=== PATIENT | female | born 1950 | race Caucasian/White ===

== ENCOUNTER → 2016-09-20 | Outpatient (CLI) | payer OTHER ==
--- NOTE | 2016-09-20 18:31 | DI ---
History patellar fracture followup. Two-view study. Comparison: 08/24/16. Findings currently, the patient has wires and fixation pins approximating the upper and lower poles o f the patella. The alignment is satisfactory as is apposition. No healing is seen across the fracture plane at this early point in time. Overall, bone mineral density is low. Impression: Satisfactory appearance of ORIF right patellar fracture. Details mentioned above
== END ==
LOC: ORTHO 12:20
PROVIDERS: ATTEND Orthopaedic Surgery
DX: S82.031 Displaced transverse fracture of right patella (principal)
CPT/HCPCS: 73560

== ENCOUNTER → 2016-10-04 | Outpatient (CLI) | payer OTHER ==
--- NOTE | 2016-10-04 11:44 | DI ---
RIGHT KNEE, 10/04/2016 11:06 AM: Clinical History: ] Displaced transverse fracture of the right patella with routine healing and subse quent encounter. Previous Exam: 08/24/2016; 09/08/2016; and 09/20/2016. AP and lateral views are submitted. The patient is status post ORIF with placement of metallic wires and a cerclage wire. Alignment and position are anatomic. A fracture lucency is still visible. There has been no interval change since 09/20/2016. Reading: Status post ORIF of the transverse fracture of the patella with no change in alignment and position f rom the previous exam. The fracture lucency is still visible.
== END ==
LOC: ORTHO 12:03
PROVIDERS: ATTEND Orthopaedic Surgery
DX: S82.031 Displaced transverse fracture of right patella (principal)
CPT/HCPCS: 73560

== ENCOUNTER → 2016-10-18 | Outpatient (CLI) | payer OTHER ==
--- NOTE | 2016-10-18 13:38 | DI ---
XR KNEE 1 OR 2 VWS,10/18/2016 10:31 AM: Clinical History: Right patellar fracture. Previous Exam: October 04, 2016 Findings: AP and lateral views of the right knee are obtained, and demonstrate a comminuted fracture of the rig ht patella. There are percutaneous K wires fixators and wire fixation of the right patella. There is a small knee joint effusion. A few peripheral vascular calcifications are seen. Impression: Comminuted fracture of the right patella unchanged from the prior exam.
== END ==
LOC: ORTHO 12:12
PROVIDERS: ATTEND Orthopaedic Surgery
DX: S82.031 Displaced transverse fracture of right patella (principal); M25.461 Effusion, right knee
CPT/HCPCS: 73560

== ENCOUNTER → 2016-11-08 | Outpatient (CLI) | payer OTHER ==
--- NOTE | 2016-11-08 21:50 | DI ---
RIGHT KNEE, 11/08/2016 11:15 AM: Clinical History: Closed displaced transverse fracture of the right patella with routine healing. Previous Exam: 10/18/2016. AP and crosstable lateral views are submitted. The patient is status post ORIF of the transverse frac ture through the patella. The fracture lucency is still visible on both the AP and crosstable lateral projection. Alignment and position are anatomic with only minimal step off of the articular surface seen on the lateral view. Reading: There has been no significant change in the appearance of the transverse fracture through the patella . The fracture lucency is still visible. Alignment and position are anatomic.
== END ==
LOC: ORTHO 11:57
PROVIDERS: ATTEND Orthopaedic Surgery
DX: S82.031 Displaced transverse fracture of right patella (principal)
CPT/HCPCS: 73560

== ENCOUNTER → 2016-11-29 | Outpatient (CLI) | payer OTHER ==
--- NOTE | 2016-11-29 13:58 | DI ---
XR KNEE 1 OR 2 VWS,11/29/2016 11:45 AM: Clinical History: Displaced fracture of the right patella Previous Exam: November 08, 2016 Findings: AP and lateral views of the right knee are obtained, and demonstrate a healing fracture through the r ight mid patella. Alignment is near-anatomic. K wires fixators and wires are unremarkable. There is a small right knee joint effusion. Impression: Healing transverse fracture through the right patella.
== END ==
LOC: ORTHO 11:46
PROVIDERS: ATTEND Orthopaedic Surgery
DX: S82.031D Displaced transverse fracture of right patella, subsequent encounter for closed fracture with routine healing (principal); M25.461 Effusion, right knee
CPT/HCPCS: 73560

== ENCOUNTER → 2016-12-27 | Outpatient (CLI) | payer OTHER ==
--- NOTE | 2016-12-27 11:55 | DI ---
RIGHT KNEE, 12/27/2016 11:23 AM: Clinical History: Closed displaced transverse fracture of the right patella with routine healing and subsequent encounter. Previous Exam: 11/29/2016. An AP and a crosstable lateral view are submitted. The patient is status post ORIF of the fracture of the patella. The fracture lucency is still visualized. Alignment and position are anatomic. Reading: The transverse fracture line through the upper third of the patella is no visualized. Alignment and p osition are anatomic.
== END ==
LOC: ORTHO 11:47
PROVIDERS: ATTEND Orthopaedic Surgery
DX: S82.031 Displaced transverse fracture of right patella (principal)
CPT/HCPCS: 73560; 99213

== ENCOUNTER → 2017-01-31 | Outpatient (CLI) | payer OTHER ==
--- NOTE | 2017-01-31 15:33 | DI ---
RIGHT KNEE, 01/31/2017 2:43 PM: Clinical History: Closed displaced transverse fracture of the right patella with routine healing. Fol lowup exam. Previous Exam: 12/27/2016. AP and lateral views are submitted. The patient is status post ORIF of a transverse fracture through the proximal third of the patella. The fracture lucency is still visible. Alignment and position are anatomic. Reading: Status post ORIF of a transverse fracture through the proximal third of the patella with anatomic ali gnment and position. The fracture lucency is still visible.
== END ==
LOC: ORTHO 14:53
PROVIDERS: ATTEND Orthopaedic Surgery
DX: S82.031 Displaced transverse fracture of right patella (principal); M25.461 Effusion, right knee
CPT/HCPCS: 73560

== ENCOUNTER 2017-08-09 09:55 | Observation (INO) ==
[~2017-08-09 09:55] MED LIST: LIDOCAINE W/ SODIUM BICARB 0.5 ML SYR ONE; LIDOCAINE W/ SODIUM BICARB 0.5 ML SYR SUBD ONE; Lactated Ringers 1,000 ML PRIMARY IV ONE; ceFAZolin Inj 2gm (Premix) 2 GM/50 ML BAG IV ONE
[2017-08-09] MEDS: Lactated Ringers 1,000 ML PRIMARY IV SCH ×2 (10:34→19:13)
[2017-08-09] MEDS ORDERED: fentaNYL Inj 250 MCG/5 ML VIAL ONE (12:19)
[2017-08-09] MEDS ORDERED: LIDOCAINE MPF 2% - 5 ML (20 MG/1 ML) ONE (12:19)
[2017-08-09] MEDS ORDERED: PROPOFOL 10 MG/1 ML (200 MG/20 ML) VIAL IV ONE (12:19)
[2017-08-09] MEDS ORDERED: MIDAZOLAM 5 MG/1 ML ONE (12:19)
[2017-08-09] MEDS ORDERED: BUPivacaine Liposome/PF (Exparel) Inj 20ml vial INFIL ONE (12:54)
[2017-08-09] MEDS ORDERED: BUPivacaine Inj 0.5% PF (5mg/ml) 10ml vial ONE (13:26)
[2017-08-09] MEDS ORDERED: KETOROLAC 30 MG/1 ML VIAL ONE (13:35)
[2017-08-09] MEDS ORDERED: KETAMINE 100 MG/1 ML - 5 ML ONE (13:35)
[2017-08-09] MEDS ORDERED: ONDANSETRON 4 MG/2 ML VIAL IVP PRN (13:56)
[2017-08-09] MEDS ORDERED: NORMAL SALINE 10 ML SYRINGE FLUSH IVP PRN ×2 (13:56→14:04)
[2017-08-09] MEDS ORDERED: IPRATROPIUM/ALBUTEROL SULFATE 3 ML NEB NEB ONE ×2 (13:57→14:05)
[2017-08-09] MEDS ORDERED: HYDROmorphone 2 MG/1 ML IVP PRN (14:04)
--- NOTE | 2017-08-09 14:06 | CRNA.PROGR ---
Anesthesia Recovery Phase I - Post Anesthesia Evaluation Patient's Condition on Arrival in Phase I: Stable Pain Level: 0
--- NOTE | 2017-08-09 14:06 | CRNA.PROGR ---
Anesthesia Time - - Start date: 08/09/17 End date: 08/09/17 - Procedure/Recovery Time Anesthesia : Time In: 12:29 Anesthesia : Time Out: 14:03 Anesthesia : Total Time: 94 - Total Anesthesia Time Total Anesthesia Time (minutes): 94 - Other Weight: 69.4 kg Height: 5 ft Body Mass Index (BMI): 29.9 Physical Status: P3 Anesthesia Type: General Anesthesia : LMA
[2017-08-09] MEDS ORDERED: Nalbuphine Inj 20 MG/ML Ampule ONE (14:24)
[2017-08-09] MEDS ORDERED: NALOXONE 0.4 MG/1 ML VIAL ONE (14:33)
[2017-08-09] MEDS ORDERED: Nalbuphine Inj 20 MG/ML Ampule IVP ONE (14:38)
[2017-08-09] MEDS ORDERED: NALOXONE 0.4 MG/1 ML VIAL IVP ONE (14:38)
--- NOTE | 2017-08-09 14:43 | EKG ---
[address] [address] Measurements Intervals [place] Rate: 82 P: 71 DC: 136 QRS: 53 QRSD: 90 T: 73 QT: 418 QTc: 457 Interpretive Statements SINUS RHYTHM NONSPECIFIC ST & T-WAVE ABNORMALITY No previous ECG available for comparison Electronically Signed On 08-10-17 08:05:05 MST by Phillip Ortez MD [email or web address]
[2017-08-09] MEDS ORDERED: Lactated Ringers 1,000 ML PRIMARY IV ONE (15:04)
--- NOTE | 2017-08-09 15:50 | ORTHO.OP ---
- - -: See Dictated Operative Report Procedure Codes - Miscellaneous Procedures Seconday Miscellaneous Procedure Codes: 76638 : Hardware Removal (javier MILES)
[2017-08-09] MEDS ORDERED: diphenhydrAMINE 25 MG CAPSULE PO PRN (17:03)
[2017-08-09] MEDS ORDERED: ACETAMINOPHEN 325 MG TABLET PO PRN (17:07)
--- NOTE | 2017-08-09 17:24 | PDOC ---
HPI - History of Present Illness Date of Service: 08/09/17 Time of Service: 17:00 Chief Complaint: Hypoxia postsurgery History of Present Illness: This is a 67 years old female with medical history significant for history of COPD on oxygen, history of breast cancer status post surgery, radiation and chemotherapy, hypertension who came into the hospital to have hardware removal from her a knee as she had previous patellar fracture and was done by Dr. John today. Postsurgery it was noted that she was hypoxic she is needing about 4-5 L of oxygen normally she is on 2 L at rest to 5 with activity, she was given Narcan as she was sleepy and she responded and it decided that she be admitted for observation. Currently she is denying symptoms she isdenying chest pain, shortness of breath, no new cough. She said she didn't have new symptoms. She felt nauseated but doesn't have any nausea now. No dizziness no lightheadedness Past Medical History Medical History: 1. COPD on 2 L of oxygen at rest she would increase it to 5 L with activity. 2. History of left breast cancer status post surgery, radiation and chemotherapy. 3. History of hypertension Surgical History: 1.History of patellar fracture needed surgery. 2. History of lumpectomy for breast cancer. 3. history of hysterectomy Family History: Reviewed an Not Pertinent Past Social History: She used to smoke quite a few months ago, doesn't drink no drugs. Tobacco Use: Former Smoker In the Past 12 Months, Have Used or Abuse Any of the Following Substance: None Alcohol Use: None Medication / Allergies Home Medications: Home Medications Medication Instructions Recorded Confirmed Type Albuterol Neb Soln 0.083% 2.5 ml IH q4 PRN vial 08/24/16 08/09/17 History Ascorbic Acid [Vitamin C] 1,500 mg PO DAILY tab 08/24/16 08/09/17 History Budesonide/Formoterol Fumarate 2 puff INH BID inh 08/24/16 08/09/17 History [SYMBICORT] Calcium Carbonate/Vitamin D3 1 tab PO BID tab 08/24/16 08/09/17 History [Calcium 600-Vit D3 200 Tablet] Diphenhydramine HCl 25 mg PO Q6H PRN cap 08/24/16 08/09/17 History Hydrochlorothiazide 1 cap PO DAILY cap 08/24/16 08/09/17 History Levocetirizine Dihydrochloride 5 mg PO DAILY tab 08/24/16 08/09/17 History Lidocaine/Prilocaine 30 gm TOPICAL DAILY PRN tube 08/24/16 08/09/17 History [Lidocaine-Prilocaine Cream] Metoprolol Succinate 1 tab PO DAILY tab 08/24/16 08/09/17 History Oxygen (O2) 1 l INH continuously #5 unit 08/24/16 08/09/17 History Tamoxifen Citrate 20 mg PO DAILY tab 08/24/16 08/09/17 History Tiotropium [place] [Spiriva] 1 puff INH DAILY inh 08/24/16 08/09/17 History Venlafaxine HCl [Venlafaxine HCl 1 tab PO DAILY cap 08/24/16 08/09/17 History ER] Vitamin B Complex Vit C No.4 150 mg PO DAILY tab 08/24/16 08/09/17 History [Super B Complex] guaifenesin ER 1,200 mg tablet, 1,200 mg PO Q12H 08/08/17 08/09/17 History extended release 12 hr oxyCODONE/APAP 5/325 Tab 1 - 2 tab PO Q4H PRN #20 tab 08/09/17 Rx [Percocet 5/325 Tab] Allergies/Adverse Reactions: Allergies 3 Allergy/AdvReac Type Severity Reaction Status Date / Time amoxicillin trihydrate Allergy Severe shortness Verified 08/09/17 19:38 [From Augmentin] of breath aspirin Allergy Severe anaphylaxis Verified 08/09/17 19:38 ciprofloxacin Allergy Severe anaphylaxis Verified 08/09/17 19:38 clindamycin Allergy Severe shortness Verified 08/09/17 19:38 of breath codeine Allergy Severe Shortness Verified 08/09/17 19:38 of breath erythromycin base Allergy Severe hives Verified 08/09/17 19:38 naproxen sodium [From Aleve] Allergy Severe anaphylaxis Verified 08/09/17 19:38 nitrofurantoin Allergy Severe Nausea and Verified 08/09/17 19:38 macrocrystalline vomiting [From Macrodantin] peanut Allergy Severe Anaphylaxis Verified 08/09/17 19:38 potassium clavulanate Allergy Severe shortness Verified 08/09/17 19:38 [From Augmentin] of breath Sulfa (Sulfonamide Allergy Severe anaphylaxis Verified 08/09/17 19:38 Antibiotics) cephalexin monohydrate Allergy Intermediate hives and Verified 08/09/17 19:38 [From Keflex] very itchy Latex, Natural Rubber Allergy Intermediate hives Verified 08/09/17 19:38 metronidazole [From Flagyl] Allergy Intermediate itching Verified 08/09/17 19:38 Milk Containing Products Allergy Intermediate rash and Verified 08/09/17 19:38 diarrhea tomato Allergy Intermediate rash and Verified 08/09/17 19:38 diarrhea valacyclovir HCl Allergy Intermediate diarrhea Verified 08/09/17 19:38 [From Valtrex] NSAIDS (Non-Steroidal Allergy Unknown ITCHING Verified 08/09/17 19:38 Anti-Inflamma Metal for surgery Allergy Severe SWELLING Uncoded 08/09/17 19:38 Review of Systems - Review of Systems All Systems: Reviewed & No Additional Complaints Except as Stated Exam - Vitals Vital Signs: Vital Signs Temperature 97.8 F Temperature Source Oral Pulse Rate [Pulse Oximeter] 87 Pulse Rate 78 Respiratory Rate 17 Blood Pressure [Right Arm] 92/57 Blood Pressure 74/43 Pulse Ox 90 Oxygen Flow Rate 4 Oxygen Delivery Method Nasal Cannula Height 5 ft Weight 152 lb - General General Appearance: No Acute Distress, Cooperative - Head Head Exam: Normal Inspection, Atraumatic - Eye Eye Exam: POSITIVE: Normal Appearance - ENT ENT Exam: POSITIVE: Normal Exam - Neck Neck Exam: Normal Inspection - Respiratory Additional Respiratory Exam Details: Decreased air entry otherwise clear - Cardiovascular Cardiovascular Exam: POSITIVE: RRR - GI/Abdominal GI/Abdominal Exam: POSITIVE: Normal Bowel Sounds, Non Tender, Non Distended, Soft, No Organomegaly - Rectal Rectal Exam: POSITIVE: Deferred - External Exam: POSITIVE: Deferred - Extremities Additional Extremities Exam Details: Dressing applied to the right knee. No edema on the left - Back Back Exam: POSITIVE: Normal Inspection - Neurological Neurological Exam: POSITIVE: Alert, Oriented x 3, CN II-XII Intact, No Facial Droop, Moves All Extremities Equally - Psychiatric Psychiatric Exam: POSITIVE: Normal Affect - Integumentary Integumentary Exam: POSITIVE: Normal Color Assessment and Plan - Patient Problems (1) Postoperative hypoxia Current Visit: Yes Status: Acute Comment: Probably secondary to medication, she is awake now does not appear in distress. Denying symptoms. I think will watch her put her on breathing treatments. We'll do a chest x-ray. will wrire for incentive spirometry Code(s): R09.02 - Hypoxemia; Z98.890 - Other specified postprocedural states (2) Hypertension Current Visit: Yes Status: Acute Comment: Blood pressure is borderline I think we'll hold her metoprolol for now. Continue with IV fluid. Code(s): I10 - Essential (primary) hypertension
[2017-08-09] MEDS: ALBUTEROL SULFATE 2.5 MG/3 ML NEB SCH (19:30)
[2017-08-09] MEDS: BUDESONIDE INH SCH (20:17)
[2017-08-09] MEDS: FORMOTEROL FUMARATE INH SCH (20:17)
[2017-08-09] MEDS: Calcium/Vit D 600mg/400u Tab 1 TAB TABLET PO SCH (20:24)
[2017-08-09] MEDS: GUAIFENESIN 600 MG TABLET PO SCH (20:25)
[2017-08-09] MEDS: oxyCODONE-ACETAMINOPHEN 5-325 TAB PO PRN (23:01)
--- NOTE | 2017-08-09 23:19 | DI ---
XR CXR 1VW,08/09/2017 5:06 PM: Clinical History: Hypoxia Previous Exam: None at this facility. Findings: A single frontal radiograph of the chest is obtained, and demonstrate increased density within the elizabeth ng bases bilaterally. There is no significant cardiomegaly. There is a chest port noted within the right anterior chest wall with the tip at the cavoatrial junct ion. Postsurgical changes are seen consistent with anterior screw and plate fixation of lower cervical spi ne. Impression: Increased density within both lung bases most consistent with pulmonary edema.
[2017-08-10] MEDS: oxyCODONE-ACETAMINOPHEN 5-325 TAB PO PRN ×3 (00:18→12:04)
[2017-08-10] MEDS: Lactated Ringers 1,000 ML PRIMARY IV SCH (01:00)
[2017-08-10 06:42] LABS: Hematocrit [HCT] 33.2 % (37.0-47.0); Hemoglobin [HGB] 10.8 g/dL (12.0-16.0); MEAN CORPUSCULAR HGB CONC 32.5 g/dL (33-37); MEAN CORPUSCULAR VOLUME 95.4 FL (81-99); RED BLOOD COUNT 3.48 10^6/uL (4.20-5.40)
[2017-08-10 06:43] LABS: BASOPHILS # (AUTO) 0.04 10*3/UL; BASOPHILS % (AUTO) 0.4 % (0-1); EOSINOPHILS % (AUTO) 5.8 % (0-8); LYMPHOCYTES # (AUTO) 2.52 10*3/uL; MEAN PLATELET VOLUME 9.6 FL (7.4-12.2); MONOCYTES # (AUTO) 0.78 10*3/UL (0.3-0.8); MONOCYTES % (AUTO) 7.5 % (5-15); NEUTROPHILS # (AUTO) 6.46 10*3/UL; NEUTROPHILS % (AUTO) 61.9 % (50-80); PLATELET MORPHOLOGY COMMENT NORMAL MORPHOLOGY (NORM); RBC MORPHOLOGY COMMENT NORMAL MORPHOLOGY (NORM); WBC MORPHOLOGY COMMENT NORMAL MORPHOLOGY (NORM)
[2017-08-10] MEDS: BUDESONIDE INH SCH (06:52)
[2017-08-10] MEDS: FORMOTEROL FUMARATE INH SCH (06:52)
[2017-08-10 06:53] VITALS: RESP 18
[2017-08-10] MEDS: ALBUTEROL SULFATE 2.5 MG/3 ML NEB SCH ×2 (06:53→10:57)
[2017-08-10] MEDS ORDERED: TIOTROPIUM BROMIDE 18 MCG CAPSULE INH SCH (07:00)
--- NOTE | 2017-08-10 08:09 | ORTHO.PROG ---
Last Taken Vital Signs: Vital Signs - Last Taken Temperature 97.4 F 08/10/17 07:30 Pulse Rate 87 08/10/17 07:30 Respiratory Rate 18 08/10/17 07:30 Blood Pressure 126/72 08/10/17 07:30 Pulse Ox 91 08/10/17 07:30 Subjective: Patient doing well minimal knee pain Objective: Motor and sensory exam is nonfocal dressing clean and dry and intact Laboratory Results 08/10/17 08/10/17 Range/Units 05:47 05:47 WBC 10.42 (4.8-10.8) 10^3/uL RBC 3.48 L (4.20-5.40) 10^6/uL Hgb 10.8 L (12.0-16.0) g/dL Hct 33.2 L (37.0-47.0) % MCV 95.4 (81-99) FL MCH 31.0 (27-31) PG MCHC 32.5 L (33-37) g/dL RDW Std Deviation 449 H (39-50) fL RDW Coeff of Jozef 13.5 (11.5-14.5) % Plt Count 195 (140-350) 10*3/uL MPV 9.6 (7.4-12.2) FL Immature Gran % (Auto) 0.2 (0-5) % Neut % (Auto) 61.9 (50-80) % Lymph % (Auto) 24.2 (10-50) % [place] % (Auto) 7.5 (5-15) % Eos % (Auto) 5.8 (0-8) % Baso % (Auto) 0.4 (0-1) % Immature Gran # (Auto) 0.02 10*3/UL Neut # (Auto) 6.46 10*3/UL Lymph # (Auto) 2.52 10*3/uL [place] # (Auto) 0.78 (0.3-0.8) 10*3/UL Eos # (Auto) 0.60 10*3/UL Baso # (Auto) 0.04 10*3/UL WBC Morphology Comment Normal morphology (NORM) Plt Morphology Comment Normal morphology (NORM) RBC Morph Comment Normal morphology (NORM) Sodium 139 (135-145) meq/L Potassium 4.0 (3.8-5.2) meq/L Chloride 104 (98-112) meq/L Carbon Dioxide 28 (23-33) meq/L Anion Gap 7 (5-20) BUN 20 (7-22) mg/dL Creatinine 1.0 (0.50-1.20) mg/dL Estimated GFR 55 (>60 ml/min/1.73m(2)) BUN/Creatinine Ratio 20.00 (6-20) Glucose 84 (78-110) mg/dL Calculated Osmolality 289.0 (267-292) mOsm/kg Calcium 9.4 (8.7-10.7) mg/dL Vital Signs (24 hrs) Temp Pulse Pulse Pulse Resp BP BP 08/10/17 07:30 97.4 F 87 18 126/72 08/10/17 07:00 08/10/17 06:53 77 18 08/10/17 05:40 08/10/17 04:05 98.2 F 88 22 122/72 08/10/17 03:00 08/10/17 00:21 98.5 F 73 16 106/62 08/09/17 23:00 08/09/17 20:27 86 18 111/70 08/09/17 19:36 85 16 93/62 08/09/17 19:31 85 08/09/17 19:30 82 20 08/09/17 19:15 98.0 F 86 16 113/80 08/09/17 19:00 84 08/09/17 17:03 97.8 F 87 17 92/57 08/09/17 16:52 97.8 F 87 17 92/57 08/09/17 16:31 97.4 F 110 H 24 73/54 08/09/17 16:15 84 20 76/37 08/09/17 15:45 89 21 61/42 08/09/17 15:39 78 08/09/17 15:30 82 8 L 85/50 08/09/17 15:15 89 12 78/53 08/09/17 15:05 97.7 F 86 9 L 74/43 08/09/17 15:00 89 15 68/41 08/09/17 14:55 94 26 H 65/41 08/09/17 14:50 87 7 L 79/41 08/09/17 14:45 87 22 80/46 08/09/17 14:41 78 14 08/09/17 14:40 82 15 73/48 08/09/17 14:35 79 12 77/41 08/09/17 14:31 76 8 L 74/49 08/09/17 14:27 77 22 71/47 08/09/17 14:20 80 23 64/32 08/09/17 14:10 79 21 60/40 08/09/17 14:05 76 8 L 50/33 08/09/17 13:58 97.7 F 83 18 90/63 Pulse Ox 08/10/17 07:30 91 08/10/17 07:00 92 08/10/17 06:53 93 08/10/17 05:40 94 08/10/17 04:05 91 08/10/17 03:00 92 08/10/17 00:21 96 08/09/17 23:00 92 08/09/17 20:27 94 08/09/17 19:36 94 08/09/17 19:31 08/09/17 19:30 94 08/09/17 19:15 93 08/09/17 19:00 94 08/09/17 17:03 90 08/09/17 16:52 08/09/17 16:31 78 08/09/17 16:15 87 08/09/17 15:45 97 08/09/17 15:39 08/09/17 15:30 92 08/09/17 15:15 89 08/09/17 15:05 89 08/09/17 15:00 89 08/09/17 14:55 92 08/09/17 14:50 91 08/09/17 14:45 95 08/09/17 14:41 98 08/09/17 14:40 96 08/09/17 14:35 92 08/09/17 14:31 89 08/09/17 14:27 85 08/09/17 14:20 81 08/09/17 14:10 99 08/09/17 14:05 98 08/09/17 13:58 97 Assessment: Hardware removal right knee doing well, patient admitted for postanesthetic issues Plan: From an orthopedic standpoint patient can be discharged home with walker or crutches weightbearing as tolerated. Patient will be giving a dressing to remove her current dressing and cover with a Silverlon dressing until seen back in clinic. Pain prescription electronically sent to pharmacy
--- NOTE | 2017-08-10 08:38 | PDOC(PROG) ---
Date and Time of Service: 08/10/2017 8:40 AM Interval History: Subjective Patient she is complaining what she think some swelling left side of the neck, she is breathing okay though denying other symptoms. Pain seemed to be controlled. No lip swelling, no tongue swelling. No itching or rash. She said she had problem swallowing her food today Objective : Data - Labs CBC and BMP: 08/10/17 05:47 08/10/17 05:47 Objective : Exam - General General Appearance: No Acute Distress, Cooperative - Head Head Exam: Normal Inspection - Eye Eye Exam: Normal Appearance - Neck Additional Neck Exam Details: I don't see clear-cut swelling. I don't feel lymph nodes. - Respiratory Additional Respiratory Exam Details: Decreased air entry otherwise clear - Cardiovascular Cardiovascular Exam: RRR - GI/Abdominal GI/Abdominal Exam: Normal Bowel Sounds, Non Tender, Non Distended, Soft - Rectal Rectal Exam: Deferred - External Exam: Deferred - Extremities Additional Extremities Exam Details: Dressing applied to the right knee - Back Back Exam: Normal Inspection - Neurological Neurological Exam: Alert, Oriented x 3, CN II-XII Intact, Speech Intact / Clear - Psychiatric Psychiatric Exam: Normal Affect Assessment and Plan - Patient Problems (1) Postoperative hypoxia Status: Acute Comment: Seems to be stable on 4 L. She is normally on 2 but she said when she walks she goes to 5. I think once she is seen by physical therapy and walking and if things remain stable we will discharge her home. Code(s): R09.02 - Hypoxemia; Z98.890 - Other specified postprocedural states (2) Hypertension Status: Acute Comment: We'll hold off on her metoprolol today Code(s): I10 - Essential (primary) hypertension (3) Swelling Status: Acute Comment: She thinks the left side of the neck there is some swelling, it's not very obvious to me, I don't see a rash, there is no itching, no swelling lip or tongue no wheezing but she is concerned because of her history of allergies and she think that there is some problem swallowing the food so we'll give a dose of prednisone and Benadryl. And will watch. I think it's maybe secondary to the irritation from the intubation that she had for surgery Code(s): R60.9 - Edema, unspecified
[2017-08-10] MEDS ORDERED: diphenhydrAMINE 50 MG/1 ML VIAL IVP PRN (08:51)
[2017-08-10] MEDS ORDERED: predniSONE Tab 20 MG TAB PO ONE (08:52)
--- NOTE | 2017-08-10 08:53 | CRNA.PROGR ---
Anesthesia Note - Progress Notes Anesthesia Progress Note: Post OP Anesthesia Note. Pt is sitting up in bed eatting breakfast. She doesnt appear to labored at this point, however, she continues to require 4 lpm O2 to maintain o2 sats above 90%. She is tolerating a regular diet, pain is well under control. with exception to oxygen saturation, her current VS are stable. Denies any residual issues fron anesthesia. Vital Signs (Last 8 hours) Temp Pulse Pulse Resp BP Pulse Ox 08/10/17 07:30 97.4 F 87 18 126/72 91 08/10/17 07:00 92 08/10/17 06:53 77 18 93 08/10/17 05:40 94 08/10/17 04:05 98.2 F 88 22 122/72 91 08/10/17 03:00 92
[2017-08-10] MEDS ORDERED: TAMOXIFEN CITRATE 20 MG PO SCH (09:00)
[2017-08-10] MEDS ORDERED: LORATADINE 10 MG TABLET PO SCH (09:00)
[2017-08-10] MEDS ORDERED: VENLAFAXINE XR 75 MG CAP PO SCH (09:00)
[2017-08-10] MEDS: GUAIFENESIN 600 MG TABLET PO SCH (09:12)
[2017-08-10] MEDS: Calcium/Vit D 600mg/400u Tab 1 TAB TABLET PO SCH (09:13)
[2017-08-10 13:13] VITALS: BP 115/68; TEMP 97.2; O2SAT 92
[2017-08-10] MEDS ORDERED: Influenza 17-18 Vaccine (6mo+) Quad 60mcg/0.5ml PF IM ONE (13:45)
--- NOTE | 2017-08-10 14:33 | DCSUMMARY ---
Hospitalization Summary Admit Date: 08/09/2017 Discharge Date: 08/10/17 Hospital Course: Discharge diagnoses 1. Hypoxia postsurgery improved likely secondary to medications/anesthetic 2. History of hypertension 3. History of COPD 4. History of breast cancer status post surgery, radiation chemotherapy 5. Status post removal of hardware on the right knee This is a 67 years old female with medical history significant for COPD on oxygen, history of breast cancer status post surgery, radiation and chemotherapy , hypertension who came into the hospital to have hardware removal from her knee and was done by Dr. John. Postsurgery was noted that she was hypoxic she was needing about 4-5 L of oxygen she is normally on 2 L at rest and 5 with activity, she was given Narcan as she was sleepy and she responded and it was decided that she be admitted for observation. when I saw her she was denying symptoms she was denying chest pain, denying shortness of breath, there is no new cough. Exam was remarkable for decreased air entry otherwise was clear. Her oxygen need stabilized at 4 L. The next day there was still no shortness of breath no chest pain. She did though complain from some swelling in the left side of the neck and some problem swallowing according to her although I did not appreciate the swelling she has a history of allergies including food so we elected to give her some Benadryl and prednisone. She did not have lip swelling, tongue swelling, no uvular swelling, no rash, no wheezing. She did walk with physical therapy and did well I did check on her again still did not appreciate significant swelling, she said though the feeling though improved and she is able to swallow better. We suspect this may be related to irritation from the intubation. She did walk with physical therapy did okay with that she could be discharged home and follow-up with her primary. Though the official chest x-ray said there may be edema I don't think so clinically as there was no crackles and did not appear in heart failure. I think the appearance is maybe secondary to radiation that she had before. Laboratory Results 08/10/17 08/10/17 Range/Units 05:47 05:47 WBC 10.42 (4.8-10.8) 10^3/uL RBC 3.48 L (4.20-5.40) 10^6/uL Hgb 10.8 L (12.0-16.0) g/dL Hct 33.2 L (37.0-47.0) % MCV 95.4 (81-99) FL MCH 31.0 (27-31) PG MCHC 32.5 L (33-37) g/dL RDW Std Deviation 449 H (39-50) fL RDW Coeff of Jozef 13.5 (11.5-14.5) % Plt Count 195 (140-350) 10*3/uL MPV 9.6 (7.4-12.2) FL Immature Gran % (Auto) 0.2 (0-5) % Neut % (Auto) 61.9 (50-80) % Lymph % (Auto) 24.2 (10-50) % [place] % (Auto) 7.5 (5-15) % Eos % (Auto) 5.8 (0-8) % Baso % (Auto) 0.4 (0-1) % Immature Gran # (Auto) 0.02 10*3/UL Neut # (Auto) 6.46 10*3/UL Lymph # (Auto) 2.52 10*3/uL [place] # (Auto) 0.78 (0.3-0.8) 10*3/UL Eos # (Auto) 0.60 10*3/UL Baso # (Auto) 0.04 10*3/UL WBC Morphology Comment Normal morphology (NORM) Plt Morphology Comment Normal morphology (NORM) RBC Morph Comment Normal morphology (NORM) Sodium 139 (135-145) meq/L Potassium 4.0 (3.8-5.2) meq/L Chloride 104 (98-112) meq/L Carbon Dioxide 28 (23-33) meq/L Anion Gap 7 (5-20) BUN 20 (7-22) mg/dL Creatinine 1.0 (0.50-1.20) mg/dL Estimated GFR 55 (>60 ml/min/1.73m(2)) BUN/Creatinine Ratio 20.00 (6-20) Glucose 84 (78-110) mg/dL Calculated Osmolality 289.0 (267-292) mOsm/kg Calcium 9.4 (8.7-10.7) mg/dL Discharge suction Diet regular Activity as started on medications Current Medication(s) 3 Medication Instructions Recorded Confirmed Type Albuterol Neb Soln 0.083% 2.5 ml IH q4 PRN vial 08/24/16 08/09/17 History Ascorbic Acid [Vitamin C] 1,500 mg PO DAILY tab 08/24/16 08/09/17 History Budesonide/Formoterol Fumarate 2 puff INH BID inh 08/24/16 08/09/17 History [SYMBICORT] Calcium Carbonate/Vitamin D3 1 tab PO BID tab 08/24/16 08/09/17 History [Calcium 600-Vit D3 200 Tablet] Diphenhydramine HCl 25 mg PO Q6H PRN cap 08/24/16 08/09/17 History Hydrochlorothiazide 1 cap PO DAILY cap 08/24/16 08/09/17 History Levocetirizine Dihydrochloride 5 mg PO DAILY tab 08/24/16 08/09/17 History Lidocaine/Prilocaine 30 gm TOPICAL DAILY PRN tube 08/24/16 08/09/17 History [Lidocaine-Prilocaine Cream] Metoprolol Succinate 1 tab PO DAILY tab 08/24/16 08/09/17 History Oxygen (O2) 1 l INH continuously #5 unit 08/24/16 08/09/17 History Tamoxifen Citrate 20 mg PO DAILY tab 08/24/16 08/09/17 History Tiotropium [place] [Spiriva] 1 puff INH DAILY inh 08/24/16 08/09/17 History Venlafaxine HCl [Venlafaxine HCl 1 tab PO DAILY cap 08/24/16 08/09/17 History ER] Vitamin B Complex Vit C No.4 150 mg PO DAILY tab 08/24/16 08/09/17 History [Super B Complex] guaifenesin ER 1,200 mg tablet, 1,200 mg PO Q12H 08/08/17 08/09/17 History extended release 12 hr oxyCODONE/APAP 5/325 Tab 1 - 2 tab PO Q4H PRN #20 tab 08/09/17 Rx [Percocet 5/325 Tab] Follow-up with PCP Condition at discharge was stable for discharge Exam - Vitals Vital Signs: Vital Signs Temperature 97.2 F Temperature Source Temporal Artery Scan Pulse Rate [Apical] 84 Pulse Rate [Pulse Oximeter] 86 Pulse Rate 83 Respiratory Rate 18 Blood Pressure [Right Arm] 115/68 Blood Pressure 73/54 Pulse Ox 92 Oxygen Flow Rate 4 Oxygen Delivery Method Nasal Cannula Height 5 ft Weight 160 lb Patient Problems - Patient Problem List (1) Postoperative hypoxia Status: Acute Code(s): R09.02 - Hypoxemia; Z98.890 - Other specified postprocedural states Category: Medical (2) Hypertension Status: Acute Code(s): I10 - Essential (primary) hypertension Category: Medical (3) Swelling Status: Acute Code(s): R60.9 - Edema, unspecified Category: Medical
--- NOTE | 2017-08-10 14:57 | PT PM DAY ---
Diagnosis : Status Post Right Knee Hardware Removal PM - Physical Therapy (Inpatient Observation) S: The patient was instructed in gait training on level surfaces and up and down stairs with full weight-bearing and a step to gait pattern. The patient is on 6 liters of oxygen. MTDD
== END 2017-08-10 15:08 | disposition home or self-care (01) ==
LOC: OR 09:55 → MED/SURG 09:55
PROVIDERS: ADMIT Internal Medicine; ATTEND Internal Medicine